=== PATIENT | female | born 1960 | race Hispanic/Latino ===

== ENCOUNTER 2022-04-27 17:53 | Emergency (ER) | payer BC, OTHER ==
[~2022-04-27] VITALS: Ht 157.5 cm; Wt 81.2 kg
[2022-04-27 18:58] LABS: BASOPHILS % 0.5 % (0.0-1.0); EOSINOPHILS # (AUTO) 0.1 (0.0-0.4); EOSINOPHILS % 1.5 % (0.0-6.0); HEMATOCRIT 37.6 % (34.2-44.1); HEMOGLOBIN 11.8 g/dL (12.0-16.0); LYMPHOCYTES # (AUTO) 2.6 (1.0-3.2); MEAN CORPUSCULAR HEMOGLOBIN 30.6 pg (28-32); MEAN CORPUSCULAR HGB CONC 31.4 g/dL (31-35); MEAN CORPUSCULAR VOLUME 97.4 fL (81-99); MONOCYTES # (AUTO) 0.5 (0.2-0.8); MONOCYTES % 6.1 % (4.4-11.3); NEUTROPHILS # (AUTO) 4.7 (2.1-6.9); NEUTROPHILS % 58.6 % (38.7-80.0); PLATELET COUNT 139 x10e3/uL (140-360); RED BLOOD COUNT 3.86 x10e6/uL (3.6-5.1); RED CELL DISTRIBUTION WIDTH 12.2 % (11.7-14.4)
[2022-04-27 19:13] LABS: ANION GAP 14.4 mmol/L (8-16); CALCIUM 9.4 mg/dL (8.4-10.2); CREATININE, SERUM 0.76 mg/dL (0.57-1.11); POTASSIUM 4.4 mmol/L (3.5-5.1)
[2022-04-27] MEDS ORDERED: GADOBENATE DIMEGLUMINE 1 ML IV ONE (22:02)
== END 2022-04-28 00:36 | disposition home or self-care (01) ==
LOC: ER 17:58
DX: H91.92 Unspecified hearing loss, left ear (principal)
CPT/HCPCS: 36415; 70553; 80048; 85025; 99283